=== PATIENT | female | born 1945 | race Caucasian/White ===

== ENCOUNTER 2017-09-21 13:02 | Emergency (ER) | payer MEDICARE ==
[2017-09-21 13:14] VITALS: BP 149/66; PULSE 70; RESP 20; TEMP 98
--- NOTE | 2017-09-21 13:39 | ED ---
General Adult HPI - General Chief complaint: Extremity Injury, Upper Stated complaint: fall/wrist pain Time Seen by Provider: 09/21/17 13:30 Source: patient, RN notes reviewed Mode of arrival: ambulatory Limitations: no limitations - History of Present Illness Initial comments: 72-year-old female presents to the emergency department with a chief complaint of left wrist pain after a fall. She tripped and fell playing with her grandchildren today. She did not hit her head. She did not pass out. She is otherwise feeling well. They were concerned due to the continued left wrist pain so she thought that she should be seen. There should be no nausea or vomiting. She denies any other symptoms at this time. Patient denies any recent fever, chills, shortness of breath, chest pain, back pain, abdominal pain , nausea vomiting, numbness or tingling, dysuria or hematuria, constipation or diarrhea, headaches or visual changes, or any other current symptoms. - Related Data Allergies Allergy/AdvReac Type Severity Reaction Status Date / Time Sulfa (Sulfonamide Allergy Unknown Verified 09/21/17 13:14 Antibiotics) Review of Systems ROS Statement: Those systems with pertinent positive or pertinent negative responses have been documented in the HPI. ROS Other: All systems not noted in ROS Statement are negative. Past Medical History Past Medical History: Cancer, Diabetes Mellitus, Hyperlipidemia, Hypertension History of Any Multi-Drug Resistant Organisms: None Reported Additional Past Surgical History / Comment(s): uterine cancer Past Psychological History: Depression Smoking Status: Never smoker Past Alcohol Use History: None Reported Past Drug Use History: None Reported General Exam - General Exam Comments Initial Comments: General: The patient is awake and alert, in no distress, and does not appear acutely ill. Neck: The neck is supple, there is no tenderness. Cardiovascular: There is a regular rate and rhythm. No murmur, rub or gallop is appreciated. Respiratory: Lungs are clear to auscultation, respirations are non-labored, breath sounds are equal. No wheezes, stridor, rales, or rhonchi. Musculoskeletal: Sensation intact with 2+ pulses throughout the left upper x- ray. Full range of motion of left elbow and left wrist. Patient will patient to the left radius. Full range of motion with 5 out of 5 muscle strength testing throughout the left hand. Limited strength to left wrist due to pain. No pain to the left elbow. Neurological: CN II-XII intact, There are no obvious motor or sensory deficits. Coordination appears grossly intact. Speech is normal. Skin: Skin is warm and dry and no rashes or lesions are noted. Psychiatric: Normal mood and affect. Limitations: no limitations Course Vital Signs 09/21/17 13:11 Temperature 98.0 F Pulse Rate 70 Respiratory 20 Rate Blood Pressure 149/66 O2 Sat by Pulse 99 Oximetry Procedures - Orthopedic Splinting/Casting Injury #1 Side: right Upper Extremity Injury Location: short arm, wrist Upper Extremity Immobilizer: volar splint Medical Decision Making - Medical Decision Making 72-year-old female presents for left wrist pain after a trip and fall. At this time the patient does appear to have a right wrist fracture. She was placed in splint. We did discuss follow-up with or so. We discussed Tylenol for pain and ice. We discussed return parameters all questions. Patient family stated they understood and management this plan. All questions have been answered. They will be discharged home. - Radiology Data Radiology results: report reviewed, image reviewed Disposition Clinical Impression: Right wrist fracture Disposition: HOME SELF-CARE Condition: Stable Instructions: Wrist Fracture in Adults (ED) Additional Instructions: Please use medication as discussed. Please follow up with family doctor if symptoms have not improved over the next two days. Please return to the emergency room if your symptoms increase or worsen or for any other concerns. Referrals: Albino Ferrell III, MD [Primary Care Provider] - 1-2 days Ulices Melendez DO [Doctor of Osteopathic Medicine] - 1-2 days Time of Disposition: 14:00
--- NOTE | 2017-09-21 13:53 | XR ---
EXAMINATION TYPE: XR wrist complete LT DATE OF EXAM: 09/21/2017 COMPARISON: NONE HISTORY: 72-year-old female left wrist pain after fall today TECHNIQUE: 4 views FINDINGS: There is a comminuted, mildly displaced fracture of the distal radial metaphysis and epiphysis. Fract ure is impacted and dorsally angulated. Intra-articular extension into the radioscaphoid, radiolunate , and distal radioulnar joints. Additional mildly displaced fracture of the ulnar styloid process. Th e mid carpal compartment appears intact. IMPRESSION: 1. Impacted, comminuted Colles' fracture distal radius. Intra-articular extension into the radiocarpa l, radiolunate, and distal radioulnar joints. 2. Additional mildly displaced fracture through the base of the ulnar styloid process.
--- NOTE | 2017-09-24 09:09 | CDI ---
Documentation Clarification OP Dear Dr. Steven Donis Please do addendum to fx site discrepancy in document. Thank you, Tanna Conley Eyeglass Assembler If you have any questions, please contact Punch Card Operator at [phone] [facility]
--- NOTE | 2017-09-26 20:09 | ED ---
Medical Decision Making - Medical Decision Making This is a correction to the incorrect documentation of the previous note. Patient's injuries were to the left side. Disposition Clinical Impression: Left wrist fracture Disposition: HOME SELF-CARE Condition: Stable Instructions: Wrist Fracture in Adults (ED) Additional Instructions: Please use medication as discussed. Please follow up with family doctor if symptoms have not improved over the next two days. Please return to the emergency room if your symptoms increase or worsen or for any other concerns. Referrals: Albino Ferrell III, MD [Primary Care Provider] - 1-2 days Ulices Melendez DO [Doctor of Osteopathic Medicine] - 1-2 days Procedures - Orthopedic Splinting/Casting Injury #1 Side: left Upper Extremity Injury Location: short arm, wrist Upper Extremity Immobilizer: volar splint
== END 2017-09-21 14:05 | disposition home or self-care (01) ==
LOC: EC 13:02
DX: S62.102A Fracture of unspecified carpal bone, left wrist, initial encounter for closed fracture (principal); Z88.2 Allergy status to sulfonamides; Z85.42 Personal history of malignant neoplasm of other parts of uterus; W01.0XXA Fall on same level from slipping, tripping and stumbling without subsequent striking against object, initial encounter; Y93.89 Activity, other specified
CPT/HCPCS: 29125; 99283

== ENCOUNTER → 2018-01-11 | Outpatient (CLI) | payer MEDICARE ==
--- NOTE | 2018-01-11 15:22 | BD ---
EXAMINATION TYPE: Axial Bone Density DATE OF EXAM: 01/11/2018 CLINICAL HISTORY: Height: 60.5 inches Weight: 230 FRAX RISK QUESTIONS: Alcohol (3 or more units per day): no Family History (Parent hip fracture): no Glucocorticoids (More than 3mos): no (Ex: prednisone, prednisolone, methylprednisolone, dexamethasone, and hydrocortisone). History of Fracture in Adulthood: yes, hand & wrist Secondary Osteoporosis: 1. Type 1 Diabetes: no, type 2 2. Hyperthyroidism: no 3. Menopause before 45: no 4. Malnutrition: no 5. Chronic liver disease: no Rheumatoid Arthritis: no Current Tobacco Use: no RISK FACTORS HISTORY OF: History of Wrist Fracture: yes, left When: September 2017 Family History of Osteoporosis: no Active: yes Diet low in dairy products/other sources of calcium: no Postmenopausal woman: yes Take estrogen and/or progesterone medications: no Lost more than 2 inches in height since high school: unsure Frequent falls: yes Poor Health: unsure Hyperparathyroidism: no Adrenal Insufficiency: no MEDICATIONS: Prednisone or other steroids: no Thyroid Medications: no Osteoporosis Medications: no Additional Medications: enalapril maleate, glimepiride, escitalopram oxalate, simvastatin , Januvia, Additional History: type 2 diabetes mellitus with hyperglycemia, nonrheumatic mitral valve insufficie ncy, nonrheumatic tricuspid valve insufficiency, syncope & collapse, essential hypertension EXAM MEASUREMENTS: Bone mineral densitometry was performed using the [employer] System. Bone mineral density as measured about the Lumbar spine is: ----- L1-L4(G/cm2): 1.131 T Score Values are as follows: ----- L2: -0.3 ----- L3: 0.8 ----- L4: -1.2 ----- L1-L4: -0.4 Bone mineral density has: Increased 9.3% since study of: 11/23/2008 Bone mineral density about the R hip (g/cm2): 0.877 Bone mineral density about the L hip (g/cm2): 0.814 T Score values are as follows: -----R Neck: -1.2 -----L Neck: -1.6 -----R Total: 0.0 -----L Total: -0.5 Bone mineral density has: Decreased -5.7% since study of: 11/23/2008 IMPRESSION: No evidence for osteoporosis or osteopenia. NOTE: T-SCORE=SD OF THE YOUNG ADULT MEAN.
== END | disposition home or self-care (01) ==
LOC: RADBDWWP 12:46
PROVIDERS: ATTEND Family Medicine
DX: S62.92XD Unspecified fracture of left hand, subsequent encounter for fracture with routine healing (principal)
CPT/HCPCS: 77080

== ENCOUNTER → 2018-11-18 | Outpatient (CLI) | payer MEDICARE ==
--- NOTE | 2018-11-18 09:27 | CT ---
EXAMINATION TYPE: CT abdomen wo/w con DATE OF EXAM: 11/18/2018 HISTORY: Hematuria, renal mass protocol CT DLP: 2284.9mGycm Automated Exposure Control for Dose Reduction was Utilized. CONTRAST: CT scan of the abdomen is performed with oral and without and with IV Contrast, patient injected with 100 mL of Isovue 300. COMPARISON: None FINDINGS: LUNG BASES: No significant abnormality is appreciated. LIVER/GB: Cholecystectomy clips are noted. PANCREAS: No significant abnormality is seen. SPLEEN: There is 9 mm splenule in splenic hilum inferiorly axial image 24. Additional 1 cm splenule a nteriorly is seen. ADRENALS: Linear calcification right adrenal gland could reflect product of old trauma. KIDNEYS: Noncontrast images show no renal calculi bilaterally. Postcontrast images show symmetric cor d measuring uptake and excretion without evidence of concerning solid or cystic renal mass or hydrone phrosis bilaterally. BOWEL: There is normal-appearing appendix from cecum extending medially in the right lower quadrant. Oral contrast does not reach colonic level. There is no suspicious small or large bowel dilatation ho wever. LYMPH NODES: No greater than 1cm abdominal lymph nodes are appreciated. OSSEOUS STRUCTURES: Anterior and lateral bridging syndesmophytes in the lower thoracic spine are pres ent. OTHER: No significant additional abnormality is seen. IMPRESSION: No suspicious findings seen to account for patient's symptoms of hematuria. Note is made of mid to distal ureters and bladder are not evaluated on this study.
== END ==
LOC: RADCTMAIN 07:47
PROVIDERS: ATTEND Family Medicine
DX: R31.9 Hematuria, unspecified (principal)
CPT/HCPCS: 82565; 84520; 74170; 36415; Q9967

== ENCOUNTER → 2019-05-15 | Outpatient (CLI) | payer MEDICARE ==
--- NOTE | 2019-05-16 13:24 | MM ---
Reason for exam: screening (asymptomatic). Last mammogram was performed 7 years and 3 months ago. History: Patient is postmenopausal and history of other cancer. Family history of breast cancer in aunt. Physical Findings: A clinical breast exam by your physician is recommended on an annual basis and results should be correlated with mammographic findings. MG 3D Screening Mammo W/Cad Bilateral CC, MLO, and XCCL view(s) were taken. Prior study comparison: February 24, 2012, bilateral digital screening mammo w/CAD. December 12, 2010, bilateral digital screening mammo w/CAD. There are scattered fibroglandular densities. Stable left lateral intramammary lymph node. No significant changes when compared with prior studies. ASSESSMENT: Negative, BI-RAD 1 RECOMMENDATION: Routine screening mammogram of both breasts in 1 year.
== END | disposition home or self-care (01) ==
LOC: RADMAMWWP 11:49
PROVIDERS: ATTEND Family Medicine
DX: Z12.31 Encounter for screening mammogram for malignant neoplasm of breast (principal)
CPT/HCPCS: 77063; 77067

== ENCOUNTER → 2020-08-09 | Outpatient (CLI) | payer MEDICARE ==
--- NOTE | 2020-08-12 09:31 | MM ---
Reason for exam: screening (asymptomatic). Last mammogram was performed 1 year and 3 months ago. History: Patient is postmenopausal and has history of other cancer at age 70. Family history of breast cancer in aunt. Physical Findings: A clinical breast exam by your physician is recommended on an annual basis and results should be correlated with mammographic findings. MG 3D Screening Mammo W/Cad Bilateral CC and MLO view(s) were taken. Prior study comparison: May 15, 2019, bilateral MG 3d screening mammo w/cad. February 24, 2012, bilateral digital screening mammo w/CAD. There are scattered fibroglandular densities. There is no discrete abnormality. No significant changes when compared with prior studies. ASSESSMENT: Negative, BI-RAD 1 RECOMMENDATION: Routine screening mammogram of both breasts in 1 year.
== END | disposition home or self-care (01) ==
LOC: RADMAMWWP 07:28
PROVIDERS: ATTEND Family Medicine
DX: Z12.31 Encounter for screening mammogram for malignant neoplasm of breast (principal)
CPT/HCPCS: 77063; 77067

== ENCOUNTER 2024-11-08 09:20 | Day surgery (SDC) | payer MEDICARE ==
[2024-11-06 10:37] VITALS: BMI 35.9
[~2024-11-08 09:20] MED LIST: FAMOTIDINE 20 MG/2 ML VIAL IV PRN; HYDROmorphone 0.5 MG/0.5 ML SYRINGE IVP PRN; LACTATED RINGERS 1,000 ML IV SCH; LIDOCAINE 1% (10MG/ML) FOR IV START INTRADERMA PRN; ONDANSETRON 4 MG/2 ML VIAL IVP ONE
[2024-11-08] MEDS: IV FLUID CONTINUATION 1,000 ML IV ONE (09:48)
[2024-11-08 10:09] LABS: Glucose,Whole Blood 162 mg/dL (70-110)
[2024-11-08] MEDS: ceFAZolin 2 GM in DEXTROSE 5% IN WATER 50 ML IVPB PRN (10:31)
[2024-11-08] MEDS ORDERED: MIDAZOLAM 2 MG/2 ML VIAL ONE (10:31)
[2024-11-08] MEDS ORDERED: LIDOCAINE 1% INJ 10MG/ML (20 ML MDV) ONE (10:31)
[2024-11-08] MEDS ORDERED: fentaNYL (PF) 50 MCG/ML 2 ML AMP ONE (10:31)
[2024-11-08] MEDS ORDERED: SUCCINYLCHOLINE CHLORIDE 200 MG/10 ML VIAL IV ONE (10:31)
[2024-11-08] MEDS ORDERED: PROPOFOL 10 MG/ML 20 ML VIAL IV ONE (10:31)
[2024-11-08] MEDS: LIDOCAINE 1%-EPI 1:100,000 20 ML VIAL SQ ONE ×2 (10:48)
[2024-11-08] MEDS: BACITRACIN ZINC 500 UNIT/GM OINT 28.4 GM TUBE TOPICAL ONE (11:12)
--- NOTE | 2024-11-08 11:20 | P.OP ---
Date of Procedure: 11/08/24 Preoperative Diagnosis: left posterolateral neck sebaceous cyst Postoperative Diagnosis: same Procedure(s) Performed: excision left posterior lateral neck sebaceous cyst- 7.2 cm with complex closure Anesthesia: ROSA Surgeon: Jorge Ambriz Estimated Blood Loss (ml): 2 Pathology: other (left posterior lateral neck cyst) Condition: stable Disposition: PACU Indications for Procedure: this 79-year-old white female with a the cystic mass left posterior lateral neck which becomes recurrently inflamed and has been persistent since she would like to have this removed Operative Findings: approximate 2.5 x 2 cm subcutaneous cyst left posterior lateral neck with overlying pore Description of Procedure: the patient was brought in the operative suite and placed in a supine position. The patient underwent induction of general anesthesia with oral endotracheal intubation without difficulty. The patient was prepped and draped in usual aseptic fashion. 1% lidocaine with 1-100,000 epinephrine was infused subcutaneously in field block fashion around the lesion. This was left to work for 7 minutes vasoconstrictive effect. An elliptical incision was then fashion around the lesion including the overlying skin which was quite adherent to the underlying cyst and including the overlying pore. The excision was then undertaken to excise the lesion with surrounding scar tissue posterior to the sternocleidomastoid muscle and superficial to the platysma muscle until the lesion was excised grossly entirely. Hemostasis was gained with electrocautery. The edges of the wound are undermined more than 50% of the length of the wound also with rotation and advancement of tissue into the wound for closure due to the need for excision of the overlying skin and hemostasis was again gained with electrocautery. The deep and superficial subcutaneous tissues were closed with inverted interrupted oral Vicryl suture the dermal layer was closed with inverted interrupted 5-0 Vicryl suture and skin closed with running locking 4-0 Prolene suture. Bacitracin ointment and sterile dressing were placed. The patient was allowed to emerge from general anesthesia having tolerated procedure well was extubated in the operating suite and transferred to postop recovery area in satisfactory condition.
[2024-11-08 11:28] VITALS: TEMP 97.4
[2024-11-08 12:04] VITALS: RESP 16
[2024-11-08 12:39] VITALS: BP 135/72; PULSE 77
== END 2024-11-08 12:40 | disposition home or self-care (01) ==
LOC: OR 09:20
PROVIDERS: ATTEND Otolaryngology
DX: L72.0 Epidermal cyst (principal); I10 Essential (primary) hypertension; E78.5 Hyperlipidemia, unspecified; E11.9 Type 2 diabetes mellitus without complications; M19.90 Unspecified osteoarthritis, unspecified site; F41.9 Anxiety disorder, unspecified; K21.9 Gastro-esophageal reflux disease without esophagitis; Z79.899 Other long term (current) drug therapy; Z79.84 Long term (current) use of oral hypoglycemic drugs; Z90.710 Acquired absence of both cervix and uterus; Z88.2 Allergy status to sulfonamides
CPT/HCPCS: 11423; 13132; 88304; C1763; J2250; J0330; J0690; J2003; J3010; J2704